=== PATIENT | male | born 1990 | race Two or more races ===

== ENCOUNTER 2023-07-28 06:29 | Emergency (ER) | payer OTHER ==
[2023-07-28 06:51] VITALS: BP 136/79; PULSE 92; RESP 16; TEMP 98.6; BMI 25.6
[2023-07-28] MEDS ORDERED: METHOCARBAMOL 500 MG TABLET ONE (07:26)
[2023-07-28] MEDS ORDERED: IBUPROFEN 600 MG TABLET (FP) PO ONE (07:26)
[2023-07-28] MEDS ORDERED: LIDOCAINE 4% PATCH TP ONE (07:27)
[2023-07-28] MEDS: LIDOCAINE 4% PATCH TP ONE (07:33)
[2023-07-28] MEDS: METHOCARBAMOL 750 MG TAB PO ONE (07:33)
[2023-07-28] MEDS: IBUPROFEN 600 MG TABLET (FP) PO ONE (07:33)
[2023-07-28] MEDS ORDERED: LIDOCAINE PATCH REMOVAL MC ONE (22:00)
== END 2023-07-28 08:17 | disposition home or self-care (01) ==
LOC: JER 06:29
DX: S39.012A Strain of muscle, fascia and tendon of lower back, initial encounter (principal); M54.50 Low back pain, unspecified; X50.1XXA Overexertion from prolonged static or awkward postures, initial encounter; Y93.B9 Activity, other involving muscle strengthening exercises
CPT/HCPCS: 99283-25